=== PATIENT | female | born 1990 | race Caucasian/White ===

== ENCOUNTER 2021-09-18 16:25 | Emergency (ER) | payer OTHER ==
[~2021-09-18] VITALS: Ht 162.6 cm; Wt 52.0 kg
[2021-09-18] MEDS ORDERED: KETOROLAC 30MG/ML VIAL IV STA (17:00)
[2021-09-18] MEDS ORDERED: SODIUM CHLORIDE 0.9% 1,000 ML IV ONE (17:00)
[2021-09-18] MEDS ORDERED: IBUP-2028 MT (17:16)
[2021-09-18 17:22] LABS: BASOPHILS % 0.2 % (0.0-2.0); EOSINOPHILS % 0.1 % (0.0-5.0); HEMATOCRIT. 43.5 % (36.0-48.0); HEMOGLOBIN. 15.1 g/dL (12.0-16.0); LYMPHOCYTES % 13.2 % (20.0-50.0); MEAN CORPUSCULAR HEMOGLOBIN 31.4 pg (28.0-32.0); MEAN CORPUSCULAR VOLUME 90.5 fL (81.0-99.0); MEAN PLATELET VOLUME 8.5 fl (7.4-10.4); MONOCYTES % 7.3 % (2.0-8.0); NEUTROPHILS % 79.2 % (40.0-76.0); PLATELET 289 x1000/uL (130-400); RED CELL DISTRIBUTION WIDTH 12.3 % (11.6-14.6)
[2021-09-18 17:31] LABS: HCG SCREEN NEGATIVE
[2021-09-18 17:35] LABS: CHLORIDE 109 mEq/L (98-107)
[2021-09-18 17:38] LABS: ETHANOL BLOOD < 10 mg/dL
[2021-09-18 17:49] VITALS: BP 124/80
== END 2021-09-18 17:56 ==
LOC: ER 16:25
DX: F11.23 Opioid dependence with withdrawal (principal); F17.200 Nicotine dependence, unspecified, uncomplicated; I49.9 Cardiac arrhythmia, unspecified
CPT/HCPCS: 36415; 80053; 80320; 83690; 84703; 85025; 93005; 96361; 96374; 99284; J1885; J7030; G0480